=== PATIENT | male | born 1965 | race African-American/Black ===

== ENCOUNTER 2017-08-16 17:11 | Emergency (ER) | payer MEDICAID ==
[~2017-08-16] VITALS: Ht 188 cm; Wt 80.0 kg
[2017-08-16 20:30] VITALS: BP 112/75
== END 2017-08-16 20:50 | disposition home or self-care (01) ==
LOC: EDSEX 17:11 → ER 20:09
DX: J06.9 Acute upper respiratory infection, unspecified (principal); F17.210 Nicotine dependence, cigarettes, uncomplicated
CPT/HCPCS: 71045; 87804; 99285

== ENCOUNTER 2018-02-28 10:28 | Emergency (ER) | payer MEDICAID ==
[~2018-02-28] VITALS: Ht 185.4 cm; Wt 80.0 kg
[2018-02-28] MEDS ORDERED: KETOROLAC 60MG/2ML VIAL IM ONE (12:45)
[2018-02-28 13:00] VITALS: BP 93/54
== END 2018-02-28 13:38 | disposition home or self-care (01) ==
LOC: ER 11:03
DX: M54.5 Low back pain (principal); F17.200 Nicotine dependence, unspecified, uncomplicated; X50.0XXA Overexertion from strenuous movement or load, initial encounter; Y93.89 Activity, other specified; Y92.89 Other specified places as the place of occurrence of the external cause; Y99.8 Other external cause status
CPT/HCPCS: 96372; 99283; J1885